=== PATIENT | male | born 1995 | race African-American/Black ===

== ENCOUNTER 2022-12-27 15:55 | Inpatient (IN) ==
--- NOTE | 2022-12-27 16:02 | Emergency Department Note ---
Impression & Plan Acute respiratory failure with hypoxia, Congestive heart failure ED Provider Note NAME: MESHA [id number] JAYDON AGE: 27 SEX: M : 1995 ARRIVES VIA: Ambulance INFORMANT: Patient ED PROVIDER(S): Heraclio Weeks DO CHIEF COMPLAINT: shortness of breath HPI: Patient is a 27-year-old male who presents the ER for shortness of breath. He was having operation on his right hand. He was extubated found to be hypoxic and reintubated. This showed a chest x-ray found pulmonary edema and were eventually able to re-extubate him on 10 L. He was transported over here via EMS. He has been coughing up bright red blood. He denies any chest pain but admits to shortness of breath. No belly pain, nausea vomiting or diarrhea. No dysuria urgency or frequency. PAST MEDICAL HISTORY:See Below PAST SURGICAL HISTORY:See Below FAMILY HISTORY:See Below SOCIAL HISTORY:See Below HOME MEDICATIONS:See Below ALLERGIES:See Below VITALS:See Below PHYSICAL EXAMINATION: GENERAL: Sitting up in bed, alert, ill-appearing, moderate distress, coughing up bright red blood, on 10 L nasal cannula EYE EXAM: normal conjunctiva. PERRL and EOM's grossly intact. OROPHARYNX: no exudate, no erythema, lips, buccal mucosa, and tongue normal and mucous membranes are moist NECK: supple, no nuchal rigidity, no adenopathy, non-tender LUNGS: Rhonchi bilateral. Normal chest wall mechanics HEART: no murmurs, S1 normal and S2 normal ABDOMEN: abdomen soft, non-tender, normo-active bowel sounds, no masses, no rebound or guarding. UPPER EXTREMITIES: upper extremities are grossly normal. LOWER EXTREMITIES: No pitting edema. NEURO EXAM: Normal sensorium, cranial nerves II-XII grossly intact, normal speech, no gross weakness of arms, no gross weakness of legs. MEDICAL DECISION MAKING: Patient is a 27-year-old male who presents ER with above-stated complaint. IV was established blood work was obtained. External records reviewed from OR. Triage Nursing notes reviewed. Limited review of prior medical records performed Vital Signs: reviewed and remarkable for no significant abnormalities Differential diagnosis: Differential diagnoses includes but is not limited to pneumonia, bronchitis, COPD/Asthma exacerbation, pneumothorax, pulmonary embolism, congestive heart failure, acute coronary syndrome ER treatment provided: See below Diagnostics interpreted by me include EKG and cardiac monitoring as listed below: -Cardiac Monitoring: An order was placed for continuous cardiac monitoring. The monitor shows a rate of 70 with sinus rhythm. -ECG: NSR rate of 75 Normal Romulus no pvc -Laboratory studies:Interpreted by me as stated above in MDM and shown below. Imaging studies: Xrays: As interpreted by me: Portable AP upright 1 view of the chest shows bilateral pulmonary edema CTs show: none Consultation(s): As described in MDM Procedures:none Critical Care: I have personally spent 40 minutes of critical care time in the direct management of this patient. This includes bedside care, interpretation of diagnostic studies, and testing, discussion with consultants, patient, and family members, and other required patient management activities. This 40 minutes is in excess of all separately billable procedures. Past Med/Surg History Medical History (Updated 12/27/22 @ 21:07 by Heraclio Weeks DO) Depressive disorder History of marijuana use Hx of phencyclidine abuse severe Injury of Achilles tendon hx-06/12/19 Inmate in correctional facility Rupture of radial collateral ligament of right thumb Surgical History Surgical history unknown Social History Smoking Status: Former smoker Hx Substance Use: Yes Last Used Substance Other:: unknown last use, found per medical record from [facility] Preferred Language: Unknown Communication Ability: unknown Building Custodian Required: No Current Living Situation: Other Current Living Situation Comment: inmate sci Allergies Allergies Allergy/AdvReac Type Severity Reaction Status Date / Time No Known Allergies Allergy Verified 12/27/22 08:59 Home Meds Home Medications Medication Instructions Recorded Confirmed No Known Home Medications 12/20/22 12/27/22 Results & Data (ED) Vital Signs Vital Signs - 24 hr 12/27/22 15:58 12/27/22 15:58 12/27/22 15:58 Temperature 36.8 C Temperature Source Oral Pulse Rate 82 Pulse Rate [Apical] Pulse Rhythm [Apical] Pulse Strength [Apical] Respiratory Rate 16 Respiratory Effort / Characteristics Labored Respiratory Depth Normal Respiratory Pattern Blood Pressure 150/72 H Blood Pressure [Right Arm] Blood Pressure Mean 98 Blood Pressure Mean [Right Arm] Pulse Oximetry 94 Oxygen Delivery Method Oxymask Room Air Oxygen Flow Rate 10 Fraction of Inspired Oxygen SaO2/FiO2 Ratio Sepsis New/Unexplained Change in Mental Status N/A Sepsis Action Taken by Nursing No Action Required 12/27/22 15:58 12/27/22 15:58 12/27/22 16:11 Temperature 36.8 C Temperature Source Oral Pulse Rate 64 Pulse Rate [Apical] 82 Pulse Rhythm [Apical] Pulse Strength [Apical] Respiratory Rate 16 Respiratory Effort / Characteristics Respiratory Depth Respiratory Pattern Blood Pressure Blood Pressure [Right Arm] 150/72 H Blood Pressure Mean Blood Pressure Mean [Right Arm] 98 Pulse Oximetry 94 Oxygen Delivery Method Room Air Oxygen Flow Rate Fraction of Inspired Oxygen SaO2/FiO2 Ratio Sepsis New/Unexplained Change in Mental Status Sepsis Action Taken by Nursing 12/27/22 16:20 12/27/22 19:00 12/27/22 20:10 Temperature Temperature Source Pulse Rate 58 L 56 L Pulse Rate [Apical] 54 L Pulse Rhythm [Apical] Regular Pulse Strength [Apical] Normal Respiratory Rate 27 H 16 18 Respiratory Effort / Characteristics Spontaneous Labored Short of Breath Non-Labored Spontaneous Non-Labored Spontaneous Respiratory Depth Normal Normal Respiratory Pattern Tachypnea Regular Blood Pressure Blood Pressure [Right Arm] 150/72 H Blood Pressure Mean Blood Pressure Mean [Right Arm] 98 Pulse Oximetry 100 100 97 Oxygen Delivery Method BiPAP Oxygen Flow Rate Fraction of Inspired Oxygen 60 60 70 SaO2/FiO2 Ratio 166 Sepsis New/Unexplained Change in Mental Status Sepsis Action Taken by Nursing 12/27/22 20:40 Temperature Temperature Source Pulse Rate Pulse Rate [Apical] 73 Pulse Rhythm [Apical] Regular Pulse Strength [Apical] Normal Respiratory Rate 21 Respiratory Effort / Characteristics Non-Labored Spontaneous Respiratory Depth Normal Respiratory Pattern Regular Blood Pressure Blood Pressure [Right Arm] 134/76 Blood Pressure Mean Blood Pressure Mean [Right Arm] 95 Pulse Oximetry 97 Oxygen Delivery Method Room Air Oxygen Flow Rate Fraction of Inspired Oxygen SaO2/FiO2 Ratio Sepsis New/Unexplained Change in Mental Status Sepsis Action Taken by Nursing Laboratory Data 12/27/22 16:16 12/27/22 16:16 Lab Results 12/27/22 12/27/22 12/27/22 Range/Units 16:16 16:16 16:16 WBC 5.44 (4.8-10.8) K/ul RBC 5.72 (4.70-6.10) M/uL Hgb 15.5 (14.0-18.0) g/dl Hct 48.5 (42.0-52.0) % MCV 84.8 (80.0-100.0) fL MCH 27.1 (25.0-34.0) pg MCHC 32.0 (32.0-36.0) g/dL RDW Std Deviation 42.3 (36.4-46.3) fL RDW Coeff of Billy 13.7 (11.5-14.5) % Plt Count 239 (130-400) K/uL MPV 11.5 (9.4-12.4) fL Immature Gran % (Auto) 0.6 % Neut % (Auto) 83.5 % Lymph % (Auto) 12.9 % [place] % (Auto) 2.2 % Eos % (Auto) 0.2 % Baso % (Auto) 0.6 % Neut # (Auto) 4.55 (1.40-6.50) K/uL Lymph # (Auto) 0.70 L (1.20-3.40) K/uL [place] # (Auto) 0.12 (0.11-0.59) K/uL Eos # (Auto) 0.01 (0.00-0.50) K/uL Baso # (Auto) 0.03 (0.00-0.20) K/uL Immature Gran # (Auto) 0.03 (0.01-0.20) K/uL VBG pH (7.36-7.41) VBG pCO2 (38-50) mmHg VBG pO2 mmHg VBG HCO3 mmol/L VBG O2 Saturation % VBG Base Excess mEq/L Sodium 137 (136-145) mmol/L Potassium 4.6 (3.5-5.1) mmol/L Chloride 104 (98-107) mmol/L Carbon Dioxide 29 (21-32) mmol/L Anion Gap 4 (3-11) BUN 14 (6-23) mg/dl Creatinine 1.15 (0.6-1.4) mg/dl Est Cr Clr Drug Dosing 110.2 ml/min Est GFR ( Amer) 99.1 ml/min Est GFR (Non-Af Amer) 85.5 ml/min BUN/Creatinine Ratio 12.2 (10-20) Glucose 115 H (70-99(Fasting)) mg/dl Calcium 8.8 (8.6-10.3) mg/dl Total Bilirubin 0.5 (0.2-1.0) mg/dl AST 21 (13-39) U/L ALT 18 (7-52) U/L Alkaline Phosphatase 32 L (34-104) U/L Troponin I High Sens 5.9 (0-20) pg/ml B-Natriuretic Peptide 11 (0-100) pg/ml Total Protein 6.4 (6.0-8.3) gm/dl Albumin 3.8 (3.4-5.0) gm/dl Globulin 2.6 (2.5-4.0) gm/dl Albumin/Globulin Ratio 1.5 (0.9-2) Lipase 17 (11-82) U/L 12/27/22 Range/Units 16:27 WBC (4.8-10.8) K/ul RBC (4.70-6.10) M/uL Hgb (14.0-18.0) g/dl Hct (42.0-52.0) % MCV (80.0-100.0) fL MCH (25.0-34.0) pg MCHC (32.0-36.0) g/dL RDW Std Deviation (36.4-46.3) fL RDW Coeff of Billy (11.5-14.5) % Plt Count (130-400) K/uL MPV (9.4-12.4) fL Immature Gran % (Auto) % Neut % (Auto) % Lymph % (Auto) % [place] % (Auto) % Eos % (Auto) % Baso % (Auto) % Neut # (Auto) (1.40-6.50) K/uL Lymph # (Auto) (1.20-3.40) K/uL [place] # (Auto) (0.11-0.59) K/uL Eos # (Auto) (0.00-0.50) K/uL Baso # (Auto) (0.00-0.20) K/uL Immature Gran # (Auto) (0.01-0.20) K/uL VBG pH 7.23 L (7.36-7.41) VBG pCO2 72 H (38-50) mmHg VBG pO2 25 mmHg VBG HCO3 30 mmol/L VBG O2 Saturation < 60.0 % VBG Base Excess 0.6 mEq/L Sodium (136-145) mmol/L Potassium (3.5-5.1) mmol/L Chloride (98-107) mmol/L Carbon Dioxide (21-32) mmol/L Anion Gap (3-11) BUN (6-23) mg/dl Creatinine (0.6-1.4) mg/dl Est Cr Clr Drug Dosing ml/min Est GFR ( Amer) ml/min Est GFR (Non-Af Amer) ml/min BUN/Creatinine Ratio (10-20) Glucose (70-99(Fasting)) mg/dl Calcium (8.6-10.3) mg/dl Total Bilirubin (0.2-1.0) mg/dl AST (13-39) U/L ALT (7-52) U/L Alkaline Phosphatase (34-104) U/L Troponin I High Sens (0-20) pg/ml B-Natriuretic Peptide (0-100) pg/ml Total Protein (6.0-8.3) gm/dl Albumin (3.4-5.0) gm/dl Globulin (2.5-4.0) gm/dl Albumin/Globulin Ratio (0.9-2) Lipase (11-82) U/L Administered Medications Discontinued Medications Furosemide (Furosemide Inj 20 Mg/2 Ml Vial) 20 mg IV NOW STA Stop: 12/27/22 17:20 Last Admin: 12/27/22 18:19 Dose: 20 mg Documented By: WCS Naloxone HCl (Naloxone Hcl 0.4 Mg/1 Ml Vial/Carp) Confirm Administered Dose 0.4 mg .ROUTE .K-MED ONE Stop: 12/27/22 16:16 Last Admin: 12/27/22 16:19 Dose: 0.2 mg Documented By: TW Imaging Data Radiologist's Impression: Chest X-Ray 12/27/22 15:58 XR chest 1V portable CLINICAL HISTORY: Chest pain, nonspecific COMPARISON STUDY: Chest radiograph December 27, 2022 at 3:54 PM. FINDINGS: There is no pneumothorax or pleural effusion. There has been progression of extensive multifocal airspace opacities since chest radiograph performed earlier today. Cardiac size is normal. Mediastinal contours are normal. IMPRESSION: Progression of extensive bilateral airspace opacities since recent chest radiograph. These remain nonspecific and differential considerations include multifocal pneumonia/aspiration pneumonitis, pulmonary edema or pulmonary hemorrhage. ACT 112: Negative or not required by law. Electronically signed by: Jeffrey Israel M.D. 12/27/2022 4:31 PM Discharge Plan Visit Data Chief Complaint: Shortness of Breath/Dyspnea Stated Complaint: HYPOXIA AFTER SURGERY ED Provider: Heraclio Weeks Discharge Problem: Acute respiratory failure with hypoxia, Congestive heart failure Patient Disposition: Admitted As Inpatient Forms Stand Alone Forms: [facility] Prescriptions Prescriptions: No Action No Known Home Medications Referrals Referrals: PCP,NO [Primary Care Provider] -
[2022-12-27] MEDS ORDERED: NALOXONE HCL 0.4 MG/1 ML VIAL/CARP ONE (16:15)
--- NOTE | 2022-12-27 16:33 | XRay Report ---
XR chest 1V portable CLINICAL HISTORY: Chest pain, nonspecific COMPARISON STUDY: Chest radiograph December 27, 2022 at 3:54 PM. FINDINGS: There is no pneumothorax or pleural effusion. There has been progression of extensive multi focal airspace opacities since chest radiograph performed earlier today. Cardiac size is normal. Medi astinal contours are normal. IMPRESSION: Progression of extensive bilateral airspace opacities since recent chest radiograph. Thes e remain nonspecific and differential considerations include multifocal pneumonia/aspiration pneumoni tis, pulmonary edema or pulmonary hemorrhage. ACT 112: Negative or not required by law. Electronically signed by: Jeffrey Israel M.D. 12/27/2022 4:31 PM
[2022-12-27 16:36] LABS: Basophils # (auto) 0.03 K/uL (0.00-0.20); Basophils % (auto) 0.6 %; Eosinophils # (auto) 0.01 K/uL (0.00-0.50); Eosinophils % (auto) 0.2 %; Hematocrit (blood only) 48.5 % (42.0-52.0); Hemoglobin 15.5 g/dl (14.0-18.0); Immature Granulocytes # (auto) 0.03 K/uL (0.01-0.20); Immature Granulocytes % (auto) 0.6 %; Lymphocytes % (auto) 12.9 %; Mean Corpuscular Hemoglobin 27.1 pg (25.0-34.0); Mean Corpuscular Volume 84.8 fL (80.0-100.0); Mean Platelet Volume 11.5 fL (9.4-12.4); Monocytes # (auto) 0.12 K/uL (0.11-0.59); Monocytes % (auto) 2.2 %; Neutrophils # (auto) 4.55 K/uL (1.40-6.50); Neutrophils % (auto) 83.5 %; Platelet Count 239 K/uL (130-400); RDW Coefficient of Variation 13.7 % (11.5-14.5); RDW Standard Deviation 42.3 fL (36.4-46.3); Red Blood Count 5.72 M/uL (4.70-6.10); White Blood Count 5.44 K/ul (4.8-10.8)
[2022-12-27 16:38] LABS: Base Excess VBG 0.6 mEq/L; HCO3 VBG 30 mmol/L; Oxygen Saturation VBG < 60.0 %; PCO2 VBG 72 mmHg (38-50); PO2 VBG 25 mmHg; pH VBG 7.23 (7.36-7.41)
[2022-12-27 16:49] LABS: Albumin Globulin Ratio 1.5 (0.9-2); Albumin Level 3.8 gm/dl (3.4-5.0); BUN Creatinine Ratio 12.2 (10-20); Bilirubin,Total 0.5 mg/dl (0.2-1.0); Calcium 8.8 mg/dl (8.6-10.3); Creatinine Clr Calc Pharmacy 110.2 ml/min; Est GFR (African American) 99.1 ml/min; Est GFR (Non-African American) 85.5 ml/min; Globulin 2.6 gm/dl (2.5-4.0); Potassium 4.6 mmol/L (3.5-5.1); Total Protein 6.4 gm/dl (6.0-8.3)
[2022-12-27 16:54] LABS: Troponin I High Sensitivity 5.9 pg/ml (0-20)
[2022-12-27] MEDS ORDERED: FUROSEMIDE INJ 20 MG/2 ML VIAL IV STA (17:19)
--- NOTE | 2022-12-27 18:33 | History & Physical Report ---
Date of Service December 27, 2022 Assessment & Plan (1) Acute respiratory failure with hypoxia: Plan: Patient was undergoing thumb surgery and after extubation found to be hypoxic. Chest x-ray showed evidence of pulmonary edema. He was initially reintubated but later extubated. Placed on oxygen through nasal cannula at 10 L. Plan is to wean him down He also received a dose of Lasix IV 20 mg. Consults box printer in case he needs reintubation (2) Rupture of radial collateral ligament of right thumb: Plan: Sustained a rupture of radial collateral ligament of the right thumb while playing basketball now status post repair by orthopedic surgery and hand surgery (3) Hemoptysis: Plan: Patient was noted to have been coughing up bright red blood Could be traumatic following intubation or could be from pulmonary edema Continue to monitor. If it worsens, will consult pulmonology Monitor hemoglobin (4) Inmate in correctional facility: Plan Admit to monitor in ICU DVT prophylaxis SCDs History of Present Illness Chief Complaint: Hypoxia Primary Care Provider: NO PCP Is a 27-year-old male who was brought to the hospital emergency department today on account of shortness of breath and hypoxia. Patient was in the same-day surgery where he had right thumb metacarpophalangeal joint and radial collateral tendon repair. Upon extubation after the surgery, he was found to be hypoxic and was subsequently reintubated. Chest x-ray showed evidence of pulmonary edema. He was eventually extubated and was placed on 10 L of oxygen through nasal cannula and transported to the emergency department. Here in the ED, he was noted to be coughing up bright red blood and was subsequently placed on CPAP. He will be admitted to ICU for further management. Allergies Allergy/AdvReac Type Severity Reaction Status Date / Time No Known Allergies Allergy Verified 12/27/22 08:59 Home Medications Medication Instructions Recorded Confirmed Type No Known Home Medications 12/20/22 12/27/22 History Past Med/Surg History Medical History (Updated 12/27/22 @ 18:40 by Ralph Barry MD) Depressive disorder History of marijuana use Hx of phencyclidine abuse severe Injury of Achilles tendon hx-06/12/19 Inmate in correctional facility Rupture of radial collateral ligament of right thumb Surgical History Surgical history unknown Social History Smoking Status: Former smoker Hx Substance Use: Yes Last Used Substance Other:: unknown last use, found per medical record from [facility] Preferred Language: Unknown Communication Ability: unknown Shearing Machine Feeder Required: No Current Living Situation: Other Current Living Situation Comment: inmate sci Review of Systems Review of Systems: All systems reviewed are negative, apart from the ones contained in the history. Physical Exam Physical Exam: The patient is awake, alert and oriented 3, well developed and well nourished, normocephalic and atraumatic, lying in bed and in no acute distress. HEENT--PERRL, EOMI, mucous membranes and oropharynx mildly dry Neck--supple. No JVD. No bruits. Thyroid normal, trachea midline, no adenopathy. Heart--normal S1 and S2. No murmurs, rubs or gallops. Lungs--clear bilaterally, no respiratory distress, no accessory muscle use. Abdomen--normal bowel sounds and soft. Mild epigastric and left sided abdominal pain Extremities--no cyanosis or clubbing. No edema. Dermatologic--normal skin turgor, normal color, no abnormal lymph nodes, no rash. Neurologic--cranial nerves II through XII grossly intact. Rheumatologic--normal range of motion. Psychiatric--normal affect. Results & Data Results & Data Vital Signs (Past 12 Hours) Vital Signs Temp Pulse Pulse Resp BP BP Pulse Ox 12/27/22 16:20 58 L 27 H 100 12/27/22 16:11 64 12/27/22 15:58 94 12/27/22 15:58 98.2 F 82 16 150/72 H 12/27/22 15:58 12/27/22 15:58 98.2 F 82 16 150/72 H 94 O2 Del Method O2 Flow Rate FiO2 12/27/22 16:20 60 12/27/22 16:11 12/27/22 15:58 Room Air 12/27/22 15:58 12/27/22 15:58 Room Air 12/27/22 15:58 Oxymask 10 PG Care Time/CCT Total # of Minutes Spent Total Time Spent with Patient: Total time spent is greater than 50% in coordination of care (as documented) at patient's floor/unit and/or counseling patient: Coding Level of Care Code 97396 INT INP/OBS CARE 3/75MIN Diagnoses Acute respiratory failure with hypoxia J96.01 Rupture of radial collateral ligament of right thumb S63.641A Hemoptysis R04.2 Inmate in correctional facility Z65.1 Time Spent (min) 75
--- NOTE | 2022-12-27 21:14 | Critical Care Consultation ---
Date of Consultation December 27, 2022 Assessment & Plan (1) Hemoptysis: (2) Acute respiratory failure with hypoxia: Plan Reason Critically Ill: 27 YOM with what appears to be difficult emergence from anesthesia with respiratory failure requiring LMA ventilation which was later removed, recovered in PACU and sent to [facility] for further evaluation and admission. He improved well on BiPAP and Lasix administration. At this time hemoptysis likely secondary to negative pressure pulmonary edema from either emergence or from laryngospasm. Neuro - Acute pain from surgical repair of ligament of thumb CAM ICU: NEGATIVE - Maintain normal wake sleep cylce as able - Pain control- Tylenol, oral narcotics if needed Cardiac - No reported history - ECG without STEMI - Follow telemetry Respiratory - Hemoptysis, pulmonary edema, hypercarbic and hypoxic respiratory failure - All above likely secondary to negative pressure pulmonary edema with complication of emergence and breathing against closed glottis or laryngospasm - Improved currently with BiPAP and Lasix- hold further diuretics as positive pressure ventilation is normally enough to reverse this - Without wheezing- PRN Albuterol - BiPAP on standby- wean oxygen to NC if able follow respiratory efforts - If able to get of O2 support, follow with EtCO2 GI - No acute needs RENAL/LYTES - Respiratory Acidosis - likely related to the above- see above - no other acute needs - No acute needs ENDO - No acute needs HEME - No acute needs ID - No current concern for infection, however possiblity of aspiration is present following events postoperative - follow fever curve, WBC, and imaging- hold abx at this time LINES/IV ACCESS - PIV Continue use of these lines DVT PROPHYLAXIS - SCDS, ambulation DISPO: ICU overnight for monitoring of ventilatory and oxygenation status- likely able to DC in morning I have personally spent 40 minutes of critical care time in the direct management of this patient. This is a life/limb threatening event. This includes time spent evaluating patient, direct bedside care, chart review, placing orders, interpretation of diagnostic studies, discussion with consultants, patient, and family members, as well as other required patient management activities. This time is exclusive of all separately billable procedures, separate from and in addition to any other critical care service time. Thank you for allowing us to participate in the care of this patient. Please refer to my attending physician's documentation for any further recommendations. Supervising Physician Co-Signing Physician Notes I saw and evaluated the patient with THERESA Stapleton, and agree with findings and plan as documented in the note. ASSESSMENT/PLAN: 1. Acute Respiratory Failure with Hypoxia -Positive pressure pulmonary edema post intubation and anesthesiaresolved -Hemoptysisresolved -Intermittent aggressive diuresis -Serial chest x-rays -Supplemental oxygen initially and can wean accordingly maintaining oxygen saturation greater than 92%. 2. Status post repair of right radial collateral ligament of patient's right thumb -Surgical area is wrapped -Follow-up surgical recommendations I have spent more than 50% of this encounter in counseling and/or coordination of care with patient. History of Present Illness Reason for Consultation: Hypoxic respiratory failure secondary to pulmonary edema Requesting Physician: Ralph Barry MD Attending Physician: Ralph Barry History of Present Illness 27 YOM prisoner with no medical history reported, surgical history of tonsillectomy. Patient presented for repair of right radial collateral ligament of right thumb that was performed today. Following emergence from anesthesia, it was reported that the patient had airway obstruction/laryngospasm, attempts were made to break this with PEEP via FM/BVM but reported difficulty secondary to facial hair. For this he was pharmacologically paralyzed with succinylcholine and managed with an LMA, this was subsequently removed and patient was taken to PACU where CXR was completed and noted bilateral pulmonary opacities. For concern of airway managment and monitoring overnight he was then sent to the EMD, where he continued to cough up blood tinged sputum and feel chest tightness as well as difficulty breathing. He was placed on BiPAP as well as given 20mg of Lasix. VBG on arrival to EMD was noted with hypercarbia and respiratory acidosis. ICU was notified following pulmonary status overnight incase need for re-intubation. Patient was evaluated in the EMD he was awake, alert, and able to speak in full setences on BiPAP. He states he feels his breathing is much better than previously. Lungs reveal mild crackles in the bases, but clear in the upper airways, he has stopped coughing up blood tinged sputum and is with SPo2 of 100%. Will attempt to remove him of BiPAP and transition to NC or HFNC. He is diuresing well following with lasix with 1Liter of urine currently at the bedside. CODE: FULL Allergies Allergy/AdvReac Type Severity Reaction Status Date / Time No Known Allergies Allergy Verified 12/27/22 08:59 Home Medications Medication Instructions Recorded Confirmed Type No Known Home Medications 12/20/22 12/27/22 History Patient History Medical History Depressive disorder History of marijuana use Hx of phencyclidine abuse severe Injury of Achilles tendon hx-06/12/19 Inmate in correctional facility Rupture of radial collateral ligament of right thumb Surgical History Surgical history unknown Social History Smoking Status: Former smoker Second Hand Exposure: No; Do You Dip or Chew Tobacco: No; Hx Alcohol Use: No Hx Substance Use: No Preferred Language: Sinhala Communication Ability: Effective Security Systems Specialist Required: No Beliefs That Will Affect Care: None Current Living Situation: Other Current Living Situation Comment: [facility] Feels Safe at Home: Yes Assistive Devices: None Review of Systems Review of Systems: REVIEW OF SYSTEMS: Constitutional: No fever, sweats or chills Eyes: No diplopia, no worsening or blurred vision ENT: normal hearing, no trouble swallowing Respiratory: (+) cough, pink tinged sputum, dyspnea at rest Cardiovascular: (+) chest tightness, No chest pain, tightness or palpitations Abdomen: No pain, nausea, vomiting, diarrhea or constipation Musculoskeletal: (+) right thumb pain, No joint pain, calf pain, swelling Neurologic: No weakness, numbness/tingling, or balance problems Psychiatric: No anxiety or depression Skin: No rash or itch Physical Exam Physical Exam: PHYSICAL EXAM: General: awake, alert, no apparent distress Head: Normocephalic, atraumatic ENT: PERRL, EOMI, no pharyngeal exudate, mucous membranes moist Neuro: AAO x 3, speech clear and appropriate, strength intact bilaterally 5/5, sensation intact and equal all extremities and dermatomes, no pronator drift Chest: equal rise and fall of the chest, no accessory muscle use, no heaves or thrills, fine crackles in bases, on BIPAP 40% Cardiac: Regular rate and rhythm, telemetry reviewed, skin warm dry, cap refill <3 seconds, peripheral pulses +2 no JVD, no murmur, no edema GI: NABS x 4 quadrants, soft, nontender to palpation, no rebound, guarding or tenderness : Spontaneously voiding, no pain, no CVA tenderness, Extremities: Normal inspection, no peripheral edema or erythema, calfs nonten helen to palpation Psych: Normal mood and affect Skin: no rash or erythema Results & Data Results & Data Vital Signs (Past 12 Hours) Vital Signs Temp Pulse Pulse Resp BP BP Pulse Ox 12/27/22 20:40 73 21 134/76 97 12/27/22 20:10 56 L 18 97 12/27/22 19:00 54 L 16 150/72 H 100 12/27/22 16:20 58 L 27 H 100 12/27/22 16:11 64 12/27/22 15:58 94 12/27/22 15:58 36.8 C 82 16 150/72 H 12/27/22 15:58 12/27/22 15:58 36.8 C 82 16 150/72 H 94 O2 Del Method O2 Flow Rate FiO2 12/27/22 20:40 Room Air 12/27/22 20:10 70 12/27/22 19:00 BiPAP 60 12/27/22 16:20 60 12/27/22 16:11 12/27/22 15:58 Room Air 12/27/22 15:58 12/27/22 15:58 Room Air 12/27/22 15:58 Oxymask 10 Laboratory Results Abnormal lab results 12/27/22 12/27/22 12/27/22 Range/Units 16:16 16:16 16:27 Lymph # (Auto) 0.70 L (1.20-3.40) K/uL VBG pH 7.23 L (7.36-7.41) VBG pCO2 72 H (38-50) mmHg Glucose 115 H (70-99(Fasting)) mg/dl Alkaline Phosphatase 32 L (34-104) U/L Diagnostic Findings Chest X-Ray 12/27/22 15:58 XR chest 1V portable CLINICAL HISTORY: Chest pain, nonspecific COMPARISON STUDY: Chest radiograph December 27, 2022 at 3:54 PM. FINDINGS: There is no pneumothorax or pleural effusion. There has been progression of extensive multifocal airspace opacities since chest radiograph performed earlier today. Cardiac size is normal. Mediastinal contours are normal. IMPRESSION: Progression of extensive bilateral airspace opacities since recent chest radiograph. These remain nonspecific and differential considerations include multifocal pneumonia/aspiration pneumonitis, pulmonary edema or pulmonary hemorrhage. ACT 112: Negative or not required by law. Electronically signed by: Jeffrey Israel M.D. 12/27/2022 4:31 PM Medications Administered Home Medications No Known Home Medications 12/20/22 [History Confirmed 12/27/22] ECG Additional Comments: 27-DEC-2022 15:59:45 Normal sinus rhythm with sinus arrhythmia Normal ECG No previous ECGs available Coding Level of Care Code 95273 CRITICAL CARE 1ST 30-74M Diagnoses Hemoptysis R04.2 Acute respiratory failure with hypoxia J96.01
[2022-12-27] MEDS ORDERED: ACETAMINOPHEN 325 MG TAB PO PRN (21:25)
[2022-12-27] MEDS ORDERED: ALBUTEROL 0.083% NEBU SOLN 3 ML VIAL NEB PRN (21:25)
[2022-12-28 05:19] LABS: Basophils # (auto) 0.01 K/uL (0.00-0.20); Basophils % (auto) 0.1 %; Hematocrit (blood only) 40.6 % (42.0-52.0); Hemoglobin 13.8 g/dl (14.0-18.0); Immature Granulocytes # (auto) 0.01 K/uL (0.01-0.20); Immature Granulocytes % (auto) 0.1 %; Lymphocytes # (auto) 1.08 K/uL (1.20-3.40); Lymphocytes % (auto) 10.6 %; Mean Corpuscular Hemoglobin 27.6 pg (25.0-34.0); Mean Corpuscular Volume 81.2 fL (80.0-100.0); Monocytes # (auto) 0.65 K/uL (0.11-0.59); Monocytes % (auto) 6.4 %; Neutrophils # (auto) 8.41 K/uL (1.40-6.50); Neutrophils % (auto) 82.8 %; Platelet Count 225 K/uL (130-400); RDW Coefficient of Variation 13.5 % (11.5-14.5); RDW Standard Deviation 39.6 fL (36.4-46.3); White Blood Count 10.16 K/ul (4.8-10.8)
[2022-12-28 05:27] LABS: BUN Creatinine Ratio 17.5 (10-20); Calcium 8.6 mg/dl (8.6-10.3); Creatinine Clr Calc Pharmacy 111.2 ml/min; Est GFR (African American) 100.2 ml/min; Est GFR (Non-African American) 86.4 ml/min; Potassium 4.2 mmol/L (3.5-5.1)
--- NOTE | 2022-12-28 08:29 | XRay Report ---
XR chest 1V portable CLINICAL HISTORY: evaluate pulmonary [place] TECHNIQUE: Single frontal radiograph of the chest was obtained. Comparison: Comparison is made to chest radiograph 12/27/2022 FINDINGS: No lines and tubes are seen. The cardiomediastinal silhouette is normal. Multiple airspace opacities are somewhat decreased from prior exam. No evidence of pleural effusion or pneumothorax. IMPRESSION: Interval improvement in extensive bilateral airspace opacities compatible with improving pulmonary ed dipesh with or without superimposed aspiration/pneumonia. ACT 112: Negative or not required by law. Electronically signed by: Reno Heath M.D. 12/28/2022 8:28 AM
[2022-12-28] MEDS ORDERED: FUROSEMIDE INJ 20 MG/2 ML VIAL IV ONE (08:44)
--- NOTE | 2022-12-28 10:06 | Orthopedic Progress Note ---
Date of Service December 28, 2022 Assessment & Plan (1) Rupture of radial collateral ligament of right thumb: Plan: Keep splint in place until follow-up Pain control with p.o. medication Orthopedically the patient is stable for discharge Discharge from hospital will be pending either medicine or critical care clearance. Follow-up at [facility] orthopedics as previously scheduled (2) Acute respiratory failure with hypoxia: Admission and Anticipated Discharge Date Admission Date: December 27, 2022 Subjective This 27-year-old male seen in the ICU this morning after undergoing a right thumb metacarpal phalangeal joint radial collateral ligament tendon repair. When he was extubated found to be hypoxic and reintubated. This showed a chest x-ray found pulmonary edema and were eventually able to re-extubate him on 10 L. He was transported to ED via EMS. He had an episode of hemoptysis in ED. Patient was given IV Lasix and BiPAP treatment which seemed to resolve his issues. States his thumb is doing well. He has no numbness in the splint feels comfortable. Currently he denies chest pain, shortness of breath, fever, chills, sweats, lethargy, nausea, vomiting, diarrhea or difficulty voiding. Review of Systems Review of Systems: All systems reviewed & are unremarkable except as noted in Subjective Physical Exam Physical Exam: Right upper extremity: Splint is clean dry and intact and in place. Patient has appropriate dexterity of digits 2 through 5. He is able to detect light sensation to touch of the pads of all digits. He is able to lightly move his thumb at the IP joints and detect light sensation to touch over the pad of the digit as well. His capillary refill is less than 2 seconds. He is neurovascular intact. Results & Data Vital Signs (Past 12 Hours) Vital Signs Temp Pulse Resp BP BP Pulse Ox O2 Del Method 12/28/22 08:00 Nasal Cannula 12/28/22 08:00 Nasal Cannula 12/28/22 08:00 82 12/28/22 00:00 54 L 12/28/22 06:31 94 Nasal Cannula 12/28/22 06:00 97 Nasal Cannula 12/28/22 06:00 82 24 111/62 95 12/28/22 05:50 54 L 20 94 12/28/22 05:40 53 L 17 96 12/28/22 05:30 54 L 19 95 12/28/22 05:20 54 L 17 96 12/28/22 05:00 114/59 L 12/28/22 04:40 54 L 17 96 12/28/22 04:00 36.9 C 115/58 L 94 Nasal Cannula 12/28/22 04:30 55 L 19 94 12/28/22 04:20 68 16 93 12/28/22 04:10 56 L 18 96 12/28/22 04:00 65 22 96 12/28/22 03:50 52 L 16 97 12/28/22 03:00 36.9 C 12/28/22 03:40 68 16 95 12/28/22 03:30 93 H 17 95 12/28/22 03:20 57 L 21 95 12/28/22 03:10 54 L 25 H 96 12/28/22 03:00 58 L 23 94 12/28/22 03:00 125/62 12/28/22 02:50 58 L 22 95 12/28/22 02:40 54 L 21 96 12/28/22 02:30 52 L 21 93 12/28/22 02:20 83 20 90 12/28/22 02:10 58 L 20 93 12/28/22 02:00 53 L 22 90 12/28/22 01:50 54 L 20 92 12/28/22 01:40 57 L 20 95 12/28/22 01:30 56 L 18 94 12/28/22 01:20 54 L 22 92 12/28/22 01:10 65 19 95 12/28/22 01:00 54 L 19 93 12/28/22 00:50 58 L 23 94 12/28/22 00:40 57 L 22 95 12/28/22 00:30 54 L 18 96 12/28/22 00:20 54 L 21 94 12/28/22 00:10 53 L 21 95 12/28/22 00:00 53 L 21 96 12/28/22 00:00 135/60 12/27/22 23:50 52 L 24 96 12/27/22 23:40 76 19 94 12/27/22 23:30 58 L 25 H 95 12/27/22 23:20 57 L 25 H 94 12/27/22 23:10 61 27 H 94 12/28/22 01:00 36.9 C 12/27/22 23:46 Nasal Cannula 12/27/22 22:30 Nasal Cannula 12/27/22 23:01 129/66 12/27/22 23:01 57 L 24 96 12/27/22 23:00 55 L 23 97 12/27/22 22:50 68 17 96 12/27/22 22:40 58 L 22 95 12/27/22 22:30 84 28 H 97 12/27/22 23:00 36.8 C 12/27/22 22:00 37.0 C 12/27/22 22:20 77 15 95 12/27/22 22:10 65 18 88 L 12/27/22 22:00 80 27 H 95 O2 Flow Rate 12/28/22 08:00 2 12/28/22 08:00 12/28/22 08:00 12/28/22 00:00 12/28/22 06:31 2 12/28/22 06:00 4 12/28/22 06:00 12/28/22 05:50 12/28/22 05:40 12/28/22 05:30 12/28/22 05:20 12/28/22 05:00 12/28/22 04:40 12/28/22 04:00 6 12/28/22 04:30 12/28/22 04:20 12/28/22 04:10 12/28/22 04:00 12/28/22 03:50 12/28/22 03:00 12/28/22 03:40 12/28/22 03:30 12/28/22 03:20 12/28/22 03:10 12/28/22 03:00 12/28/22 03:00 12/28/22 02:50 12/28/22 02:40 12/28/22 02:30 12/28/22 02:20 12/28/22 02:10 12/28/22 02:00 12/28/22 01:50 12/28/22 01:40 12/28/22 01:30 12/28/22 01:20 12/28/22 01:10 12/28/22 01:00 12/28/22 00:50 12/28/22 00:40 12/28/22 00:30 12/28/22 00:20 12/28/22 00:10 12/28/22 00:00 12/28/22 00:00 12/27/22 23:50 12/27/22 23:40 12/27/22 23:30 12/27/22 23:20 12/27/22 23:10 12/28/22 01:00 12/27/22 23:46 2 12/27/22 22:30 2 12/27/22 23:01 12/27/22 23:01 12/27/22 23:00 12/27/22 22:50 12/27/22 22:40 12/27/22 22:30 12/27/22 23:00 12/27/22 22:00 12/27/22 22:20 12/27/22 22:10 12/27/22 22:00 Diagnostic Findings Laboratory Results WBC 10.16 K/ul (4.8-10.8) 12/28/22 04:46 RBC 5.00 M/uL (4.70-6.10) 12/28/22 04:46 Hgb 13.8 g/dl (14.0-18.0) L 12/28/22 04:46 Hct 40.6 % (42.0-52.0) L 12/28/22 04:46 MCV 81.2 fL (80.0-100.0) 12/28/22 04:46 MCH 27.6 pg (25.0-34.0) 12/28/22 04:46 MCHC 34.0 g/dL (32.0-36.0) 12/28/22 04:46 RDW Std Deviation 39.6 fL (36.4-46.3) 12/28/22 04:46 RDW Coeff of Billy 13.5 % (11.5-14.5) 12/28/22 04:46 Plt Count 225 K/uL (130-400) 12/28/22 04:46 MPV 12.0 fL (9.4-12.4) 12/28/22 04:46 Immature Gran % (Auto) 0.1 % 12/28/22 04:46 Neut % (Auto) 82.8 % 12/28/22 04:46 Lymph % (Auto) 10.6 % 12/28/22 04:46 Band[place] % (Auto) 6.4 % 12/28/22 04:46 Eos % (Auto) 0.0 % 12/28/22 04:46 Baso % (Auto) 0.1 % 12/28/22 04:46 Neut # (Auto) 8.41 K/uL (1.40-6.50) H 12/28/22 04:46 Lymph # (Auto) 1.08 K/uL (1.20-3.40) L 12/28/22 04:46 [place] # (Auto) 0.65 K/uL (0.11-0.59) H 12/28/22 04:46 Eos # (Auto) 0.00 K/uL (0.00-0.50) 12/28/22 04:46 Baso # (Auto) 0.01 K/uL (0.00-0.20) 12/28/22 04:46 Immature Gran # (Auto) 0.01 K/uL (0.01-0.20) 12/28/22 04:46 VBG pH 7.23 (7.36-7.41) L 12/27/22 16:27 VBG pCO2 72 mmHg (38-50) H 12/27/22 16:27 VBG pO2 25 mmHg 12/27/22 16:27 VBG HCO3 30 mmol/L 12/27/22 16:27 VBG O2 Saturation < 60.0 % 12/27/22 16:27 VBG Base Excess 0.6 mEq/L 12/27/22 16:27 Sodium 135 mmol/L (136-145) L 12/28/22 04:46 Potassium 4.2 mmol/L (3.5-5.1) 12/28/22 04:46 Chloride 102 mmol/L (98-107) 12/28/22 04:46 Carbon Dioxide 26 mmol/L (21-32) 12/28/22 04:46 Anion Gap 7 (3-11) 12/28/22 04:46 BUN 20 mg/dl (6-23) 12/28/22 04:46 Creatinine 1.14 mg/dl (0.6-1.4) 12/28/22 04:46 Est Cr Clr Drug Dosing 111.2 ml/min 12/28/22 04:46 Est GFR ( Amer) 100.2 ml/min 12/28/22 04:46 Est GFR (Non-Af Amer) 86.4 ml/min 12/28/22 04:46 BUN/Creatinine Ratio 17.5 (10-20) 12/28/22 04:46 Glucose 111 mg/dl (70-99(Fasting)) H 12/28/22 04:46 POC Glucose 99 mg/dl (70-99) 12/28/22 04:49 Calcium 8.6 mg/dl (8.6-10.3) 12/28/22 04:46 Total Bilirubin 0.5 mg/dl (0.2-1.0) 12/27/22 16:16 AST 21 U/L (13-39) 12/27/22 16:16 ALT 18 U/L (7-52) 12/27/22 16:16 Alkaline Phosphatase 32 U/L (34-104) L 12/27/22 16:16 Troponin I High Sens 5.9 pg/ml (0-20) 12/27/22 16:16 B-Natriuretic Peptide 11 pg/ml (0-100) 12/27/22 16:16 Total Protein 6.4 gm/dl (6.0-8.3) 12/27/22 16:16 Albumin 3.8 gm/dl (3.4-5.0) 12/27/22 16:16 Globulin 2.6 gm/dl (2.5-4.0) 12/27/22 16:16 Albumin/Globulin Ratio 1.5 (0.9-2) 12/27/22 16:16 Lipase 17 U/L (11-82) 12/27/22 16:16 Nasal Screen MRSA (PCR) Negative (Negative) 12/27/22 21:45 Impressions Chest X-Ray 12/28/22 05:00 XR chest 1V portable CLINICAL HISTORY: evaluate pulmonary [place] TECHNIQUE: Single frontal radiograph of the chest was obtained. Comparison: Comparison is made to chest radiograph 12/27/2022 FINDINGS: No lines and tubes are seen. The cardiomediastinal silhouette is normal. Multiple airspace opacities are somewhat decreased from prior exam. No evidence of pleural effusion or pneumothorax. IMPRESSION: Interval improvement in extensive bilateral airspace opacities compatible with improving pulmonary edema with or without superimposed aspiration/pneumonia. ACT 112: Negative or not required by law. Electronically signed by: Reno Heath M.D. 12/28/2022 8:28 AM
--- NOTE | 2022-12-28 11:37 | Hospitalist Progress Note ---
Date of Service December 28, 2022 Assessment & Plan (1) Acute respiratory failure with hypoxia: Plan: Patient was undergoing thumb surgery and after extubation found to be hypoxic. Chest x-ray showed evidence of pulmonary edema. He was initially reintubated but later extubated. Initially Placed on oxygen through nasal cannula at 10 L. He also received a dose of Lasix IV 20 mg. 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 (2) Rupture of radial collateral ligament of right thumb: Plan: Sustained a rupture of radial collateral ligament of the right thumb while playing basketball now status post repair by orthopedic surgery and hand surgery Rest of management per ortho Outpatient follow up (3) Hemoptysis: Plan: Now resolved (4) Inmate in correctional facility: Plan Hopefully d/c in the next 24 hrs DVT prophylaxis SCDs Admission and Anticipated Discharge Date Admission Date: December 27, 2022 Subjective Patient seen and examined today, no more episodes of hemoptysis,Patient seen and examined today, no more episodes of hemoptysis Review of Systems Review of Systems: All systems reviewed are negative, apart from the ones contained in the history. Physical Exam Physical Exam: The patient is awake, alert and oriented 3, well developed and well nourished, normocephalic and atraumatic, lying in bed and in no acute distress. HEENT--PERRL, EOMI, mucous membranes and oropharynx mildly dry Neck--supple. No JVD. No bruits. Thyroid normal, trachea midline, no adenopathy. Heart--normal S1 and S2. No murmurs, rubs or gallops. Lungs--clear bilaterally, no respiratory distress, no accessory muscle use. Abdomen--normal bowel sounds and soft. Mild epigastric and left sided abdominal pain Extremities--no cyanosis or clubbing. No edema. Dermatologic--normal skin turgor, normal color, no abnormal lymph nodes, no rash. Neurologic--cranial nerves II through XII grossly intact. Rheumatologic--normal range of motion. Psychiatric--normal affect. Results & Data Results & Data Vital Signs (Past 12 Hours) Vital Signs Temp Pulse Resp BP BP Pulse Ox O2 Del Method 12/28/22 09:30 53 L 20 90 12/28/22 09:00 57 L 24 93 12/28/22 09:00 118/70 12/28/22 08:30 86 20 92 12/28/22 08:00 58 L 20 90 12/28/22 08:00 118/72 12/28/22 07:30 84 23 90 12/28/22 07:00 57 L 19 93 12/28/22 07:00 123/64 12/28/22 06:30 54 L 18 94 12/28/22 06:00 111/62 12/28/22 08:00 Nasal Cannula 12/28/22 08:00 Nasal Cannula 12/28/22 08:00 82 12/28/22 00:00 54 L 12/28/22 06:31 94 Nasal Cannula 12/28/22 06:00 97 Nasal Cannula 12/28/22 06:00 82 24 111/62 95 12/28/22 05:50 54 L 20 94 12/28/22 05:40 53 L 17 96 12/28/22 05:30 54 L 19 95 12/28/22 05:20 54 L 17 96 12/28/22 05:00 114/59 L 12/28/22 04:40 54 L 17 96 12/28/22 04:00 98.4 F 115/58 L 94 Nasal Cannula 12/28/22 04:30 55 L 19 94 12/28/22 04:20 68 16 93 12/28/22 04:10 56 L 18 96 12/28/22 04:00 65 22 96 12/28/22 03:50 52 L 16 97 12/28/22 03:00 98.5 F 12/28/22 03:40 68 16 95 12/28/22 03:30 93 H 17 95 12/28/22 03:20 57 L 21 95 12/28/22 03:10 54 L 25 H 96 12/28/22 03:00 58 L 23 94 12/28/22 03:00 125/62 12/28/22 02:50 58 L 22 95 12/28/22 02:40 54 L 21 96 12/28/22 02:30 52 L 21 93 12/28/22 02:20 83 20 90 12/28/22 02:10 58 L 20 93 12/28/22 02:00 53 L 22 90 12/28/22 01:50 54 L 20 92 12/28/22 01:40 57 L 20 95 12/28/22 01:30 56 L 18 94 09/01/23 01:20 54 L 22 92 12/28/22 01:10 65 19 95 12/28/22 01:00 54 L 19 93 12/28/22 00:50 58 L 23 94 12/28/22 00:40 57 L 22 95 12/28/22 00:30 54 L 18 96 12/28/22 00:20 54 L 21 94 12/28/22 00:10 53 L 21 95 12/28/22 00:00 53 L 21 96 12/28/22 00:00 135/60 12/27/22 23:50 52 L 24 96 12/27/22 23:40 76 19 94 12/28/22 01:00 98.5 F 12/27/22 23:46 Nasal Cannula O2 Flow Rate 12/28/22 09:30 12/28/22 09:00 12/28/22 09:00 12/28/22 08:30 12/28/22 08:00 12/28/22 08:00 12/28/22 07:30 12/28/22 07:00 12/28/22 07:00 12/28/22 06:30 12/28/22 06:00 12/28/22 08:00 2 12/28/22 08:00 12/28/22 08:00 12/28/22 00:00 12/28/22 06:31 2 12/28/22 06:00 4 12/28/22 06:00 12/28/22 05:50 12/28/22 05:40 12/28/22 05:30 12/28/22 05:20 12/28/22 05:00 12/28/22 04:40 12/28/22 04:00 6 12/28/22 04:30 12/28/22 04:20 12/28/22 04:10 12/28/22 04:00 12/28/22 03:50 12/28/22 03:00 12/28/22 03:40 12/28/22 03:30 12/28/22 03:20 12/28/22 03:10 12/28/22 03:00 12/28/22 03:00 12/28/22 02:50 12/28/22 02:40 12/28/22 02:30 12/28/22 02:20 12/28/22 02:10 12/28/22 02:00 12/28/22 01:50 12/28/22 01:40 12/28/22 01:30 12/28/22 01:20 12/28/22 01:10 12/28/22 01:00 12/28/22 00:50 12/28/22 00:40 12/28/22 00:30 12/28/22 00:20 12/28/22 00:10 12/28/22 00:00 12/28/22 00:00 12/27/22 23:50 12/27/22 23:40 12/28/22 01:00 12/27/22 23:46 2 PG Care Time/CCT Total # of Minutes Spent Total Time Spent with Patient: Total time spent is greater than 50% in coordination of care (as documented) at patient's floor/unit and/or counseling patient: Coding Level of Care Code 38066 SUB INP/OBS CARE 2/35MIN Diagnoses Acute respiratory failure with hypoxia J96.01 Rupture of radial collateral ligament of right thumb S63.641A Hemoptysis R04.2 Inmate in correctional facility Z65.1 Time Spent (min) 35
--- NOTE | 2022-12-28 15:57 | Critical Care Progress Note ---
Date of Service December 28, 2022 Assessment & Plan (1) Hemoptysis: (2) Acute respiratory failure with hypoxia: Plan Reason Critically Ill: 27 YOM with what appears to be difficult emergence from anesthesia with respiratory failure requiring LMA ventilation which was later removed, recovered in PACU and sent to [facility] for further evaluation and admission. He improved well on BiPAP and Lasix administration. At this time hemoptysis likely secondary to negative pressure pulmonary edema from either emergence or from laryngospasm. Neuro - Acute pain from surgical repair of ligament of thumb CAM ICU: NEGATIVE - Maintain normal wake sleep cycle as able - Pain control- Tylenol, oral narcotics if needed Cardiac - No reported history - ECG without STEMI - Follow telemetry Respiratory - Hemoptysis, pulmonary edema, hypercarbic and hypoxic respiratory failure - All above likely secondary to negative pressure pulmonary edema with complication of emergence and breathing against closed glottis or laryngospasm - Improved currently with BiPAP and Lasix- hold further diuretics as positive pressure ventilation is normally enough to reverse this - Without wheezing- PRN Albuterol - BiPAP on standby- wean oxygen to [place] if able follow respiratory efforts - If able to get of O2 support, follow with EtCO2 -Provide another dose of diuretic, Lasix -Repeat chest x-ray in the morning GI - No acute needs RENAL/LYTES - Respiratory Acidosis - likely related to the above- see above - no other acute needs -Replace electrolytes as needed - No acute needs ENDO - No acute needs HEME - No acute needs ID - No current concern for infection, however possiblity of aspiration is present following events postoperative - follow fever curve, WBC, and imaging- hold abx at this time LINES/IV ACCESS - PIV Continue use of these lines DVT PROPHYLAXIS - SCDS, ambulation DISPO: ICU overnight for monitoring of ventilatory and oxygenation status- likely able to DC in morning I have personally spent 37 minutes of critical care time in the direct management of this patient. This is a life/limb threatening event. This includes time spent evaluating patient, direct bedside care, chart review, placing ord ers, interpretation of diagnostic studies, discussion with consultants, patient, and family members, as well as other required patient management activities. This time is exclusive of all separately billable procedures, separate from and in addition to any other critical care service time. Thank you for allowing us to participate in the care of this patient. Please refer to my attending physician's documentation for any further recommendations. Admission and Anticipated Discharge Date Admission Date: December 27, 2022 Subjective Patient resting comfortably still with some hypoxia requiring 2 L nasal cannula to maintain oxygen saturation of 90%, no further hemoptysis noted overnight of this morning, patient has no new complaints, denies any chest pain. Portable chest x-ray today shows significant improvement to bilateral pulmonary vascular engorgement. Review of Systems Review of Systems: REVIEW OF SYSTEMS: Constitutional: No fever, sweats or chills Eyes: No diplopia, no worsening or blurred vision ENT: normal hearing, no trouble swallowing Respiratory: (+) cough, pink tinged sputum, dyspnea at rest Cardiovascular: (+) chest tightness, No chest pain, tightness or palpitations Abdomen: No pain, nausea, vomiting, diarrhea or constipation Musculoskeletal: (+) right thumb pain, No joint pain, calf pain, swelling Neurologic: No weakness, numbness/tingling, or balance problems Psychiatric: No anxiety or depression Skin: No rash or itch Physical Exam Constitutional: WD/WN, vitals as above No acute respiratory cardiac distress Eyes: PERRL, conjunctivae normal, anicteric sclerae ENMT: external ear and nose normal, oropharynx normal Neck: trachea midline, no thyromegaly Respiratory: Occasional scattered crackles to the bases although patient has good inspiratory and expiratory effort, no coughing, no wheezing. As stated previously, patient's portable chest x-ray shows significant improvement to pulmonary vascular congestion. Cardiovascular: RRR, no murmur, no edema S1-S2 within normal limits without rubs gallops or clicks. Gastrointestinal (Abdomen): normal bowel sounds, soft, nontender, no hepatosplenomegaly Musculoskeletal: no cyanosis or clubbing, extremities motor strength 5/5 Skin: no rashes, warm and dry Neurologic: patellar DTR's 2+ bilat, sensation intact and PERRL, EOMI, accommodation nl, no face palsy, no dysarthria Psychiatric: A+Ox3, euthymic affect Results & Data Results & Data Vital Signs (Past 12 Hours) Vital Signs Temp Pulse Resp BP BP Pulse Ox O2 Del Method 12/28/22 13:00 58 L 18 96 12/28/22 13:00 128/59 L 12/28/22 12:00 58 L 21 96 12/28/22 12:00 124/71 12/28/22 11:00 52 L 18 95 12/28/22 11:00 128/60 12/28/22 10:00 53 L 19 95 12/28/22 09:30 53 L 20 90 12/28/22 09:00 57 L 24 93 12/28/22 09:00 118/70 12/28/22 08:30 86 20 92 12/28/22 08:00 58 L 20 90 12/28/22 08:00 118/72 12/28/22 07:30 84 23 90 12/28/22 07:00 57 L 19 93 12/28/22 07:00 123/64 12/28/22 06:30 54 L 18 94 12/28/22 06:00 111/62 12/28/22 08:00 Nasal Cannula 12/28/22 08:00 Nasal Cannula 12/28/22 08:00 82 12/28/22 06:31 94 Nasal Cannula 12/28/22 06:00 97 Nasal Cannula 12/28/22 06:00 82 24 111/62 95 12/28/22 05:50 54 L 20 94 12/28/22 05:40 53 L 17 96 12/28/22 05:30 54 L 19 95 12/28/22 05:20 54 L 17 96 12/28/22 05:00 114/59 L 12/28/22 04:40 54 L 17 96 12/28/22 04:00 36.9 C 115/58 L 94 Nasal Cannula 12/28/22 04:30 55 L 19 94 12/28/22 04:20 68 16 93 12/28/22 04:10 56 L 18 96 12/28/22 04:00 65 22 96 O2 Flow Rate 12/28/22 13:00 12/28/22 13:00 12/28/22 12:00 12/28/22 12:00 12/28/22 11:00 12/28/22 11:00 12/28/22 10:00 12/28/22 09:30 12/28/22 09:00 12/28/22 09:00 12/28/22 08:30 12/28/22 08:00 12/28/22 08:00 12/28/22 07:30 12/28/22 07:00 12/28/22 07:00 12/28/22 06:30 12/28/22 06:00 12/28/22 08:00 2 12/28/22 08:00 12/28/22 08:00 12/28/22 06:31 2 12/28/22 06:00 4 12/28/22 06:00 12/28/22 05:50 12/28/22 05:40 12/28/22 05:30 12/28/22 05:20 12/28/22 05:00 12/28/22 04:40 12/28/22 04:00 6 12/28/22 04:30 12/28/22 04:20 12/28/22 04:10 12/28/22 04:00 Laboratory Results Laboratory Results WBC 10.16 K/ul (4.8-10.8) 12/28/22 04:46 RBC 5.00 M/uL (4.70-6.10) 12/28/22 04:46 Hgb 13.8 g/dl (14.0-18.0) L 12/28/22 04:46 Hct 40.6 % (42.0-52.0) L 12/28/22 04:46 MCV 81.2 fL (80.0-100.0) 12/28/22 04:46 MCH 27.6 pg (25.0-34.0) 12/28/22 04:46 MCHC 34.0 g/dL (32.0-36.0) 12/28/22 04:46 RDW Std Deviation 39.6 fL (36.4-46.3) 12/28/22 04:46 RDW Coeff of Billy 13.5 % (11.5-14.5) 12/28/22 04:46 Plt Count 225 K/uL (130-400) 12/28/22 04:46 MPV 12.0 fL (9.4-12.4) 12/28/22 04:46 Immature Gran % (Auto) 0.1 % 12/28/22 04:46 Neut % (Auto) 82.8 % 12/28/22 04:46 Lymph % (Auto) 10.6 % 12/28/22 04:46 [place] % (Auto) 6.4 % 12/28/22 04:46 Eos % (Auto) 0.0 % 12/28/22 04:46 Baso % (Auto) 0.1 % 12/28/22 04:46 Neut # (Auto) 8.41 K/uL (1.40-6.50) H 12/28/22 04:46 Lymph # (Auto) 1.08 K/uL (1.20-3.40) L 12/28/22 04:46 [place] # (Auto) 0.65 K/uL (0.11-0.59) H 12/28/22 04:46 Eos # (Auto) 0.00 K/uL (0.00-0.50) 12/28/22 04:46 Baso # (Auto) 0.01 K/uL (0.00-0.20) 12/28/22 04:46 Immature Gran # (Auto) 0.01 K/uL (0.01-0.20) 12/28/22 04:46 VBG pH 7.23 (7.36-7.41) L 12/27/22 16:27 VBG pCO2 72 mmHg (38-50) H 12/27/22 16:27 VBG pO2 25 mmHg 12/27/22 16:27 VBG HCO3 30 mmol/L 12/27/22 16:27 VBG O2 Saturation < 60.0 % 12/27/22 16:27 VBG Base Excess 0.6 mEq/L 12/27/22 16:27 Sodium 135 mmol/L (136-145) L 12/28/22 04:46 Potassium 4.2 mmol/L (3.5-5.1) 12/28/22 04:46 Chloride 102 mmol/L (98-107) 12/28/22 04:46 Carbon Dioxide 26 mmol/L (21-32) 12/28/22 04:46 Anion Gap 7 (3-11) 12/28/22 04:46 BUN 20 mg/dl (6-23) 12/28/22 04:46 Creatinine 1.14 mg/dl (0.6-1.4) 12/28/22 04:46 Est Cr Clr Drug Dosing 111.2 ml/min 12/28/22 04:46 Est GFR ( Amer) 100.2 ml/min 12/28/22 04:46 Est GFR (Non-Af Amer) 86.4 ml/min 12/28/22 04:46 BUN/Creatinine Ratio 17.5 (10-20) 12/28/22 04:46 Glucose 111 mg/dl (70-99(Fasting)) H 12/28/22 04:46 POC Glucose 99 mg/dl (70-99) 12/28/22 04:49 Calcium 8.6 mg/dl (8.6-10.3) 12/28/22 04:46 Total Bilirubin 0.5 mg/dl (0.2-1.0) 12/27/22 16:16 AST 21 U/L (13-39) 12/27/22 16:16 ALT 18 U/L (7-52) 12/27/22 16:16 Alkaline Phosphatase 32 U/L (34-104) L 12/27/22 16:16 Troponin I High Sens 5.9 pg/ml (0-20) 12/27/22 16:16 B-Natriuretic Peptide 11 pg/ml (0-100) 12/27/22 16:16 Total Protein 6.4 gm/dl (6.0-8.3) 12/27/22 16:16 Albumin 3.8 gm/dl (3.4-5.0) 12/27/22 16:16 Globulin 2.6 gm/dl (2.5-4.0) 12/27/22 16:16 Albumin/Globulin Ratio 1.5 (0.9-2) 12/27/22 16:16 Lipase 17 U/L (11-82) 12/27/22 16:16 Nasal Screen MRSA (PCR) Negative (Negative) 12/27/22 21:45 Impressions Chest X-Ray 12/28/22 05:00 XR chest 1V portable CLINICAL HISTORY: evaluate pulmonary [place] TECHNIQUE: Single frontal radiograph of the chest was obtained. Comparison: Comparison is made to chest radiograph 12/27/2022 FINDINGS: No lines and tubes are seen. The cardiomediastinal silhouette is normal. Multiple airspace opacities are somewhat decreased from prior exam. No evidence of pleural effusion or pneumothorax. IMPRESSION: Interval improvement in extensive bilateral airspace opacities compatible with improving pulmonary edema with or without superimposed aspiration/pneumonia. ACT 112: Negative or not required by law. Electronically signed by: Reno Heath M.D. 12/28/2022 8:28 AM Medications Administered Home Medications Medication Instructions Recorded Confirmed Last Taken No Known Home Medications 12/20/22 12/27/22 Unknown Coding Level of Care Code 15068 CRITICAL CARE 1ST 30-74M Diagnoses Hemoptysis R04.2 Acute respiratory failure with hypoxia J96.01
[2022-12-29 06:38] LABS: Basophils # (auto) 0.05 K/uL (0.00-0.20); Basophils % (auto) 0.7 %; Eosinophils # (auto) 0.14 K/uL (0.00-0.50); Hematocrit (blood only) 40.7 % (42.0-52.0); Hemoglobin 13.8 g/dl (14.0-18.0); Immature Granulocytes # (auto) 0.02 K/uL (0.01-0.20); Immature Granulocytes % (auto) 0.3 %; Lymphocytes # (auto) 1.82 K/uL (1.20-3.40); Lymphocytes % (auto) 26.2 %; Mean Corpuscular Hemoglobin 27.4 pg (25.0-34.0); Mean Corpuscular Hgb Conc 33.9 g/dL (32.0-36.0); Mean Corpuscular Volume 80.8 fL (80.0-100.0); Mean Platelet Volume 11.6 fL (9.4-12.4); Monocytes # (auto) 0.65 K/uL (0.11-0.59); Monocytes % (auto) 9.4 %; Neutrophils # (auto) 4.26 K/uL (1.40-6.50); Neutrophils % (auto) 61.4 %; Platelet Count 204 K/uL (130-400); RDW Coefficient of Variation 13.7 % (11.5-14.5); RDW Standard Deviation 39.8 fL (36.4-46.3); Red Blood Count 5.04 M/uL (4.70-6.10); White Blood Count 6.94 K/ul (4.8-10.8)
[2022-12-29 07:06] LABS: BUN Creatinine Ratio 13.4 (10-20); Calcium 8.9 mg/dl (8.6-10.3); Creatinine Clr Calc Pharmacy 113.1 ml/min; Est GFR (African American) 102.3 ml/min; Est GFR (Non-African American) 88.3 ml/min; Potassium 4.1 mmol/L (3.5-5.1)
--- NOTE | 2022-12-29 11:42 | Discharge Summary ---
Date of Service December 29, 2022 Admission HPI Per Admitting Provider Is a 27-year-old male who was brought to the hospital emergency department today on account of shortness of breath and hypoxia. Patient was in the same-day surgery where he had right thumb metacarpophalangeal joint and radial collateral tendon repair. Upon extubation after the surgery, he was found to be hypoxic and was subsequently reintubated. Chest x-ray showed evidence of pulmonary edema. He was eventually extubated and was placed on 10 L of oxygen through nasal cannula and transported to the emergency department. Here in the ED, he was noted to be coughing up bright red blood and was subsequently placed on CPAP. He will be admitted to ICU for further management. Principal Diagnosis acute hypoxia Discharge Exam The patient is awake, alert and oriented 3, well developed and well nourished, normocephalic and atraumatic, lying in bed and in no acute distress. HEENT--PERRL, EOMI, mucous membranes and oropharynx mildly dry Neck--supple. No JVD. No bruits. Thyroid normal, trachea midline, no adenopathy. Heart--normal S1 and S2. No murmurs, rubs or gallops. Lungs--clear bilaterally, no respiratory distress, no accessory muscle use. Abdomen--normal bowel sounds and soft. Mild epigastric and left sided abdominal pain Extremities--no cyanosis or clubbing. No edema. Dermatologic--normal skin turgor, normal color, no abnormal lymph nodes, no rash. Neurologic--cranial nerves II through XII grossly intact. Rheumatologic--normal range of motion. Psychiatric--normal affect. Discharge Data Allergies Allergy/AdvReac Type Severity Reaction Status Date / Time No Known Allergies Allergy Verified 12/27/22 08:59 Consultations 12/27/22 16:54 ED Decision to Admit Stat 12/27/22 21:25 Consult [employer] Routine Hospital Course (1) Acute respiratory failure with hypoxia: Patient was undergoing thumb surgery and after extubation found to be hypoxic. Chest x-ray showed evidence of pulmonary edema. He was initially reintubated but later extubated. Initially Placed on oxygen through nasal cannula at 10 L. He also received a dose of Lasix IV 20 mg. Now on room air (2) Rupture of radial collateral ligament of right thumb: Sustained a rupture of radial collateral ligament of the right thumb while playing basketball now status post repair by orthopedic surgery and hand surgery Rest of management per ortho Outpatient follow up (3) Hemoptysis: Now resolved (4) Inmate in correctional facility: Plan d/c DVT prophylaxis SCDs Total Time Total Time Spent Total Time Spent (In Minutes): 35 Discharge Plan Discharge Items Patient Disposition: [facility] Reason For Visit: HYPOXIA Discharge Diagnosis: hypoxia-resolved, thumb ligament damage Activity: Per Instructions section Non-emergency contact: Primary Care Provider and Surgeon Call non-emergency contact if: you have any medication questions Follow-up/Referrals: PCP,NO [Primary Care Provider] - Diet: Regular Addtl Attending Provider Instructions: please make appointment to follow up with ortho surgery Pending Studies at Discharge: No Stand-Alone Forms: [employer] Skilled Items Patient informed of condition?: Yes Discharge Level of Care: Other Communicable Disease: No Discharge Prognosis: Stable Lines: None Urinary Catheter: No Medications and DC Order Prescriptions: No Action No Known Home Medications Discharge Orders: Discharge Order (Routine); Ordered 12/29/22 Ordered By: Ralph Barry Admission Data Admit Date/Time: 12/27/22 17:53 Attending Provider: Ralph Barry Admit Provider: Ralph Barry Primary Care Provider: PCP,NO Other Providers: Ralph Barry ; Gennaro Salazar Other Interventions: Discharge Summary Assessment (RN) Last Done: 12/29/22 10:24 Coding Level of Care Code 81731 INP/OBS DISCH >30 MIN Diagnoses Acute respiratory failure with hypoxia J96.01 Rupture of radial collateral ligament of right thumb S63.641A Hemoptysis R04.2 Inmate in correctional facility Z65.1 Time Spent (min) 35
--- NOTE | 2022-12-31 15:17 | Electrocardiogram Report ---
Test Reason : Blood Pressure : / mmHG Vent. Rate : 075 BPM Atrial Rate : 075 BPM P-R Int : 134 ms QRS Dur : 096 ms QT Int : 406 ms P-R-T Axes : 077 082 049 degrees QTc Int : 453 ms Normal sinus rhythm with sinus arrhythmia Normal ECG No previous ECGs available Confirmed by Jhonatan Thapa ([id number]) on 12/31/2022 3:17:20 PM Referred By: REFERRED SELF Confirmed By:Jhonatan Thapa
== END 2022-12-29 12:59 | DRG 189 ==
LOC: ED 15:55 → 1E 17:53 → 2E 12-28 21:22